=== PATIENT | female | born 1960 | race Caucasian/White ===

== ENCOUNTER → 2016-08-11 | Outpatient (CLI) | payer BC ==
--- NOTE | 2016-08-11 09:11 | DIAGNOSTIC IMAGING REPORT ---
RIGHT KNEE INCLUDING BILATERAL STANDING AP VIEWS (4 VIEWS) CLINICAL HISTORY: Right knee pain COMPARISON: None. DISCUSSION: No fractures are visualized. There is no radiographic evidence of joint effusion. There are no erosive or destructive changes. No loose bodies are visualized. The joint space appears well-preserved for age. IMPRESSION: Unremarkable conventional radiographic evaluation of the right knee for age Electronically signed by: Maxx Nichols M.D. 08/11/2016 9:09 AM Dictated Date/Time: 08/11/2016 9:08 AM
== END | disposition home or self-care (01) ==
LOC: C.RDSM 16:24
PROVIDERS: ATTEND Family Medicine
DX: M25.561 Pain in right knee (principal)